=== PATIENT | male | born 1975 | race Caucasian/White ===

== ENCOUNTER 2021-01-07 16:27 | Emergency (ER) | payer OTHER ==
[2021-01-07] MEDS ORDERED: WELLBUTRIN SR150 MG PO (17:14)
== END 2021-01-07 17:35 | disposition home or self-care (01) ==
LOC: FER 16:27
DX: Z76.0 Encounter for issue of repeat prescription (principal); Z72.0 Tobacco use
CPT/HCPCS: 99281